=== PATIENT | male | born 1980 | race American Indian/Alaskan Native ===

== ENCOUNTER 2021-09-22 09:28 | Emergency (ER) | payer MEDICAID ==
[~2021-09-22] VITALS: Ht 167.6 cm; Wt 85.0 kg
[2021-09-22] MEDS ORDERED: TOPUD PO (10:52)
[2021-09-22] MEDS ORDERED: IBUP-2028 MT (10:52)
[2021-09-22] MEDS ORDERED: ACETAMINOPHEN 325MG TABLET PO ONE (11:15)
[2021-09-22] MEDS ORDERED: IBUPROFEN 400MG TABLET PO ONE (11:15)
[2021-09-22 13:16] VITALS: BP 151/80
== END 2021-09-22 13:16 | disposition home or self-care (01) ==
LOC: ER 09:28
DX: S82.892A Other fracture of left lower leg, initial encounter for closed fracture (principal); W22.8XXA Striking against or struck by other objects, initial encounter; R03.0 Elevated blood-pressure reading, without diagnosis of hypertension; Y93.89 Activity, other specified; Y92.89 Other specified places as the place of occurrence of the external cause
CPT/HCPCS: 29515; 73590; 73610; 73630; 99284